=== PATIENT | female | born 1990 | race Caucasian/White ===

== ENCOUNTER → 2023-12-16 09:46 | Outpatient (REF) | payer OTHER, SELFPAY | LOC: MRI 3T 09:46 | PROVIDERS: ATTENDING PHYSICIAN Nurse Practitioner | DX: Z86.69 Personal history of other diseases of the nervous system and sense organs (principal); R41.89 Other symptoms and signs involving cognitive functions and awareness | CPT/HCPCS: 70553; A9575 ==